=== PATIENT | male | born 1930 | race Caucasian/White ===

== ENCOUNTER 2019-06-25 19:08 | Emergency (ER) | payer BC, MEDICARE ==
--- NOTE | 2019-06-25 20:27 | EDM.PDOC ---
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 No neurological weakness. Pt was riding his truck all day long in order to cut grass. Pt is Ox3 has no pain, no numbness or any other acute neurological symptoms. He is otherwise in his usual state of health. Pt takes Plavix daily. No other acute med issues. BP 157/66 RR 18 Pulse ox 96% on RA Pulse 82 Temp 36.8 Onset Date: 06/25/19 Onset Time: 15:00 Duration: Hour(s): Location: Reports: Lower Extremity, Right (calg tingeling) Quality: Reports: Other (tingeling) Severity: Mild Improves with: Reports: None Worsens with: Reports: None Context: Reports: Other (was sitting on the tructor all day long) Associated Symptoms: Reports: No Other Symptoms Treatments [employer]: Reports: EKG - Related Data Allergies Allergy/AdvReac Type Severity Reaction Status Date / Time meperidine HCl [From Demerol] Allergy Other Verified 06/25/19 19:19 propoxyphene HCl Allergy Nausea Verified 06/25/19 19:19 [From Darvon] Home Meds: Home Meds Atenolol 25 mg PO BEDTIME 09/23/15 [History] Doxazosin Mesylate 4 mg PO BEDTIME 09/23/15 [History] Levothyroxine Sodium 150 mcg PO DAILY 09/23/15 [History] Multivitamin [Multivitamins] 1 tab PO BEDTIME 09/23/15 [History] Polyethylene Glycol 3350 [MiraLAX] 0.25 pack PO BEDTIME PRN 09/23/15 [History] Triamcinolone Acetonide [Triamcinolone Acetonide 0.1% Crm] 1 applic TOP TID PRN 09/23/15 [History] Clopidogrel Bisulfate [Clopidogrel] 75 mg BEDTIME 06/25/19 [History] Omeprazole 40 mg DAILY 06/25/19 [History] predniSONE [Prednisone] 5 mg BEDTIME 06/25/19 [History] Past Medical History HEENT History: Reports: Cataract Other HEENT History: wears glasses Cardiovascular History: Reports: Hypertension Other Cardiovascular History: CAROTID STENOSIS Respiratory History: Reports: Other (See Below) Other Respiratory History: CHRONIC COUGH Gastrointestinal History: Reports: Chronic Constipation, GERD Genitourinary History: Reports: Prostate Disorder, Retention, Urinary Other Genitourinary History: hydrocele, had a mccoy catheter placed in ED Musculoskeletal History: Reports: Fracture Other Musculoskeletal History: PMR Neurological History: Reports: CVA Other Neuro History: NEUROMUSCULAR DISORDER Endocrine/Metabolic History: Reports: Diabetes, Type II, Hypothyroidism Other Endocrine/Metabolic History: Borderline diabetic - Past Surgical History HEENT Surgical History: Reports: Cataract Surgery, Eye Surgery GI Surgical History: Reports: Colonoscopy, EGD, Hernia Repair/Other, Other (See Below) Neurological Surgical History: Reports: Other (See Below) Social & Family History - Family History Family Medical History: Noncontributory - Caffeine Use Caffeine Use: Reports: Coffee - Recreational Drug Use Recreational Drug Use: No ED ROS GENERAL - Review of Systems Review Of Systems: See Below Constitutional: Reports: No Symptoms HEENT: Reports: No Symptoms Respiratory: Reports: No Symptoms Cardiovascular: Reports: No Symptoms Endocrine: Reports: No Symptoms GI/Abdominal: Reports: No Symptoms : Reports: No Symptoms Musculoskeletal: Reports: No Symptoms Skin: Reports: Pruritis (right calf tingling) Neurological: Reports: Tingling (right calf for 2 hours) Psychiatric: Reports: No Symptoms Hematologic/Lymphatic: Reports: No Symptoms Immunologic: Reports: No Symptoms ED EXAM, NEURO - Physical Exam Exam: See Below Exam Limited By: No Limitations General Appearance: Alert, WD/WN, Mild Distress Eye Exam: Bilateral Eye: Normal Inspection Ears: Normal External Exam Nose: Normal Inspection Throat/Mouth: Normal Inspection, Normal Lips, Normal Voice, No Airway Compromise Head Exam: Atraumatic, Normocephalic Neck: Normal Inspection, Supple, Non-Tender, Full Range of Motion Respiratory/Chest: No Respiratory Distress, Lungs Clear, Normal Breath Sounds, Chest Non-Tender Cardiovascular: Normal Peripheral Pulses, Regular Rate, Rhythm, No Edema, No Gallop, No Rub GI/Abdominal: Normal Bowel Sounds, Soft, Non-Tender, No Organomegaly, No Mass, Pelvis Stable (Male) Exam: Deferred Rectal (Males) Exam: Deferred Neurological: Alert, Normal Mood/Affect, Normal Dorsiflexion, CN II-XII Intact, Normal Gait, Oriented x 3 Back Exam: Decreased Range of Motion (due to low back surgery) Extremities: Normal Inspection, Normal Range of Motion, Non-Tender, Normal Capillary Refill Psychiatric: Normal Affect, Normal Mood Skin Exam: Warm, Dry, Intact, Normal Color, No Rash EKG INTERPRETATION EKG Date: 06/25/19 Time: 19:25 Rhythm: NSR Rate (Beats/Min): 77 [place]: Normal P-Wave: Present QRS: Normal ST-T: Normal QT: Normal Comparison: NA - No Prior EKG Course - Vital Signs Text/Narrative:: 89 y.o.w.m with a H/O lacunar infarct in te distant past came to the ed with right posterior calf tingling of the past few hours. No neurological weakness. Pt was riding his truck all day long in order to cut grass. Pt is Ox3 has no pain, no numbness or any other acute neurological symptoms. He is otherwise in his usual state of health. Pt takes Plavix daily. No other acute med issues. BP 157/66 RR 18 Pulse ox 96% on RA Pulse 82 Temp 36.8 PE: WNWD W M with minimal right calf tingling. Labs: CBC and BMP were nl Imaging: Not indicated Impression: Minimal right calf tingling after riding tractor all day long Tx: none. Pt is on Plavix Reexam: Pt was doing fine, was in his usual state of health on D/C Plan: D/C with instructions Last Recorded V/S: Last Vital Signs Temp 36.5 C 06/25/19 19:10 Pulse 81 06/25/19 20:15 Resp 18 06/25/19 20:15 BP 145/76 H 06/25/19 20:15 Pulse Ox 98 06/25/19 20:15 - Orders/Labs/Meds Labs: Laboratory Tests 06/25/19 06/25/19 06/25/19 Range/Units 19:20 19:20 19:20 WBC 8.1 (4.5-12.0) X10-3/uL RBC 4.49 (4.30-5.75) x10(6)uL Hgb 14.4 (13.5-17.8) g/dL Hct 42.5 (30.0-51.3) % MCV 94.6 (80-96) fL MCH 32.0 (27.7-33.6) pg MCHC 33.8 (32.2-35.4) g/dL RDW 12.4 (11.5-15.5) % Plt Count 237 (125-369) X10(3)uL MPV 6.8 L (7.4-10.4) fL Neut % (Auto) 72.0 (46-82) % Lymph % (Auto) 17.7 (13-37) % [place] % (Auto) 7.9 (4-12) % Eos % (Auto) 2 (1.0-5.0) % Baso % (Auto) 1 (0-2) % Neut # (Auto) 5.9 (1.6-8.3) # Lymph # (Auto) 1.4 (0.6-5.0) # [place] # (Auto) 0.6 (0.0-1.3) # Eos # (Auto) 0.2 (0.0-0.8) # Baso # (Auto) 0.0 (0.0-0.2) # PT 10.6 (8.7-11.1) INR 1.09 (0.89-1.13) Sodium 139 (135-145) mmol/L Potassium 4.1 (3.5-5.3) mmol/L Chloride 101 (100-110) mmol/L Carbon Dioxide 28 (21-32) mmol/L BUN 20 H (7-18) mg/dL Creatinine 1.1 (0.70-1.30) mg/dL Est Cr Clr Drug Dosing 51.93 mL/min Estimated GFR (MDRD) > 60 (>60) BUN/Creatinine Ratio 18.2 (9-20) Glucose 106 (80-116) mg/dL Calcium 8.9 (8.6-10.2) mg/dL Creatine Kinase 52 L (60-160) IU/L Departure - Departure Time of Disposition: 20:25 Disposition: Home, Self-Care 01 Condition: Good Clinical Impression: Tingling of skin - Discharge Information Instructions: Paresthesia Referrals: PCP,None [Primary Care Provider] - Forms: ED Department Discharge Additional Instructions: Please cont your current medications, please follow up with your regular MD as needed, come back if your symptoms get worse acutely.
[2019-06-25 21:57] VITALS: BP 145/76; PULSE 81
== END 2019-06-25 20:35 | disposition home or self-care (01) ==
LOC: FB.ED 19:08
DX: R20.2 Paresthesia of skin (principal); I10 Essential (primary) hypertension; K21.9 Gastro-esophageal reflux disease without esophagitis; E11.9 Type 2 diabetes mellitus without complications; E03.9 Hypothyroidism, unspecified; Z79.02 Long term (current) use of antithrombotics/antiplatelets; Z88.5 Allergy status to narcotic agent; Z88.6 Allergy status to analgesic agent; Z79.899 Other long term (current) drug therapy; Z86.73 Personal history of transient ischemic attack (TIA), and cerebral infarction without residual deficits
CPT/HCPCS: 36415; 80048; 82550; 82962; 85025; 85610; 93010; 99282; 99284-25

== ENCOUNTER 2020-08-29 17:07 | Emergency (ER) | payer MEDICARE ==
[2020-08-29] MEDS ORDERED: Ondansetron 4 MG Tab.DIS PO ONE (17:08)
[2020-08-29] MEDS ORDERED: Lidocaine 2% with EPINEPHrine 1:100,000 20 ML MDV INFILT ONE (17:08)
[2020-08-29] MEDS ORDERED: Diphtheria,Pertussis(Acell),Tetanus Vaccine 0.5 ML SDV IM ONE (18:32)
--- NOTE | 2020-08-29 18:37 | EDM.PDOC ---
ED HPI GENERAL MEDICAL PROBLEM - General Chief Complaint: Head Injury Stated Complaint: LACERATION FACE Time Seen by Provider: 08/29/20 17:10 Source of Information: Reports: Patient History Limitations: Reports: No Limitations - History of Present Illness INITIAL COMMENTS - FREE TEXT/NARRATIVE: Patient presented to the ED because of head and facial injury. He tripped and fell and hit his face on a metal barrel. He sustained a nasal and facial laceration. there is no LOC after the fall. nose Pain Score (Numeric/FACES): 2 - Related Data Allergies Allergy/AdvReac Type Severity Reaction Status Date / Time meperidine HCl [From Demerol] Allergy Other Verified 06/25/19 19:19 propoxyphene HCl Allergy Nausea Verified 06/25/19 19:19 [From Darvon] Home Meds: Home Meds Doxazosin Mesylate 4 mg PO BEDTIME 09/23/15 [History] Levothyroxine Sodium 150 mcg PO DAILY 09/23/15 [History] Multivitamin [Multivitamins] 1 tab PO BEDTIME 09/23/15 [History] Polyethylene Glycol 3350 [MiraLAX] 0.25 pack PO BEDTIME PRN 09/23/15 [History] Triamcinolone Acetonide [Triamcinolone Acetonide 0.1% Crm] 1 applic TOP TID PRN 09/23/15 [History] atenoloL [Atenolol] 25 mg PO BEDTIME 09/23/15 [History] Clopidogrel Bisulfate [Clopidogrel] 75 mg BEDTIME 06/25/19 [History] Omeprazole 40 mg DAILY 06/25/19 [History] predniSONE [Prednisone] 5 mg BEDTIME 06/25/19 [History] Past Medical History HEENT History: Reports: Cataract Other HEENT History: wears glasses Cardiovascular History: Reports: Hypertension, Other (See Below) Other Cardiovascular History: CAROTID STENOSIS Respiratory History: Reports: Other (See Below) Other Respiratory History: CHRONIC COUGH Gastrointestinal History: Reports: Chronic Constipation, GERD Genitourinary History: Reports: Prostate Disorder, Retention, Urinary Other Genitourinary History: hydrocele, had a mccoy catheter placed in ED Musculoskeletal History: Reports: Fracture Other Musculoskeletal History: PMR Neurological History: Reports: CVA, TIA Other Neuro History: NEUROMUSCULAR DISORDER Endocrine/Metabolic History: Reports: Diabetes, Type II, Hypothyroidism Other Endocrine/Metabolic History: Borderline diabetic - Past Surgical History HEENT Surgical History: Reports: Cataract Surgery, Eye Surgery GI Surgical History: Reports: Colonoscopy, EGD, Hernia Repair/Other, Other (See Below) Social & Family History - Family History Family Medical History: Noncontributory - Tobacco Use Smoking Status *Q: Never Smoker - Caffeine Use Caffeine Use: Reports: Coffee ED ROS GENERAL - Review of Systems Review Of Systems: See Below Constitutional: Reports: No Symptoms HEENT: Reports: Nosebleed Respiratory: Reports: No Symptoms Cardiovascular: Reports: No Symptoms Endocrine: Reports: No Symptoms GI/Abdominal: Reports: No Symptoms : Reports: No Symptoms Musculoskeletal: Reports: No Symptoms Skin: Reports: Wound Neurological: Reports: No Symptoms Psychiatric: Reports: No Symptoms ED EXAM, HEAD INJURY - Physical Exam Exam: See Below Exam Limited By: No Limitations General Appearance: Alert, No Apparent Distress Head: Atraumatic Ears: Normal External Exam, Normal Canal, Hearing Grossly Normal Nose: Nasal Deformity, Nasal Swelling Throat/Mouth: Normal Inspection, Normal Lips, Normal Teeth Neck: Non-Tender, Full Range of Motion, Normal Alignment Respiratory: No Respiratory Distress, Lungs Clear, Normal Breath Sounds Cardiovascular: Normal Peripheral Pulses, Regular Rate, Rhythm, No Edema, No Gallop GI/Abdominal Exam: Normal Bowel Sounds, Soft, Non-Tender, No Organomegaly Back Exam: Normal Inspection, Full Range of Motion Extremities: Normal Inspection, Normal Range of Motion Neurologic: solutions executive security II-XII nml As Tested, No Motor/Sensory Deficits, Alert, Normal Mood/Affect, Oriented x 3 Skin: Normal Color ED LACERATION/WOUND & ARNAUD PROC - Laceration/Wound Repair Nose Lac/wound length in cm: 7 Appearance: Superficial Anesthetic Type: Local Local Anesthesia - Lidocaine (Xylocaine): 2% with EPI Local Anesthetic Volume: 2cc Skin Prep: Chlorhexidine (Hibiciens) Closed with: Sutures Suture Size: 3-0 # of Sutures: 7 Suture Type: Interrupted, Other (Chromic Gut) Course - Vital Signs Text/Narrative:: Tdap ENT consult with Dr Motley who recommended to follow up as needed. If patient is not bothered by his nasal deformity then he doesn't need to follow up. Patient said he doesn't care at all if his nose is deformed. Tranexamic Acid 1 gm IV x1 and topical Last Recorded V/S: Last Vital Signs Temp 36.6 C 08/29/20 19:00 Pulse 76 08/29/20 20:16 Resp 16 08/29/20 20:16 BP 169/81 H 08/29/20 20:16 Pulse Ox 98 08/29/20 20:16 - Orders/Labs/Meds Orders: Active Orders 24 hr Category Date Time Status Vaccines to be Administered [RC] PER UNIT ROUTINE Care 08/29/20 18:33 Active Head wo Cont [CT] Stat Exams 08/29/20 22:09 Taken Max Facial Sinus wo Cont [CT] Stat Exams 08/29/20 17:26 Taken Meds: Medications Discontinued Medications Generic Name Dose Route Start Last Admin Trade Name Freq PRN Reason Stop Dose Admin Diphtheria/Tetanus/Acell Pertussis 0.5 ml 08/29/20 18:32 08/29/20 18:53 Adacel IM 08/29/20 18:33 0.5 ml .ONCE ONE Administration Tranexamic Acid 1,000 mg/ 60 mls @ 200 mls/hr 08/29/20 19:16 Sodium Chloride IV 08/29/20 19:33 ONETIME ONE Tranexamic Acid 500 mg 08/29/20 19:17 Cyklokapron TOP 08/29/20 19:18 ONETIME ONE Departure - Departure Time of Disposition: 18:50 Disposition: Home, Self-Care 01 Condition: Good Clinical Impression: Nasal fracture, Facial injury - Discharge Information Instructions: Nasal Fracture, [id number], Sutures, Paul, or Adhesive Wound Closure, [id number], Facial Laceration, [id number] Referrals: Morales Moeller MD [Primary Care Provider] - Forms: ED Department Discharge Additional Instructions: Please read discharge instructions on facial injury and laceration No need to apply an antibiotic ointment The suture that was used will dissolve on it's own after 2-3 weeks Small amount of bleeding is ok, just put pressure for 15 minutes You can take tylenol 1000 mg every 8 hours as needed for pain Do not take your plavix for 3 days Follow up with ENT as needed Sepsis Event Note (ED) - Evaluation Sepsis Screening Result: No Definite Risk - Focused Exam Vital Signs: Vital Signs Temp Pulse Resp BP Pulse Ox 08/29/20 20:16 76 16 169/81 H 98 08/29/20 19:00 36.6 C 78 17 114/97 H 96 08/29/20 17:07 36.4 C 88 18 166/80 H 98 - My Orders Last 24 Hours: My Active Orders 08/29/20 17:26 Max Facial Sinus wo Cont [CT] Stat 08/29/20 18:33 Vaccines to be Administered [RC] PER UNIT ROUTINE 08/29/20 22:09 Head wo Cont [CT] Stat - Assessment/Plan Last 24 Hours: My Active Orders 08/29/20 17:26 Max Facial Sinus wo Cont [CT] Stat 08/29/20 18:33 Vaccines to be Administered [RC] PER UNIT ROUTINE 08/29/20 22:09 Head wo Cont [CT] Stat
[2020-08-29] MEDS ORDERED: Tranexamic Acid 1,000 MG in Sodium Chloride 0.9% 50 ML IV ONE (19:16)
[2020-08-29] MEDS ORDERED: Sodium Chloride 0.9% 250 ML IV SCH (19:30)
[2020-08-29 20:19] VITALS: BP 169/81; PULSE 76
== END 2020-08-29 20:45 | disposition home or self-care (01) ==
LOC: FB.ED 17:07
DX: S02.2XXA Fracture of nasal bones, initial encounter for closed fracture (principal); I10 Essential (primary) hypertension; E11.9 Type 2 diabetes mellitus without complications; E03.9 Hypothyroidism, unspecified; Z79.02 Long term (current) use of antithrombotics/antiplatelets; Z86.73 Personal history of transient ischemic attack (TIA), and cerebral infarction without residual deficits; Z88.5 Allergy status to narcotic agent; Z88.6 Allergy status to analgesic agent; Z79.899 Other long term (current) drug therapy; Z23 Encounter for immunization; W01.198A Fall on same level from slipping, tripping and stumbling with subsequent striking against other object, initial encounter
CPT/HCPCS: 12014; 70450; 70486; 90471; 90715; 96361; 96365; 99283; A9270; J7050

== ENCOUNTER 2021-06-04 09:01 | Observation (INO) | payer MEDICARE ==
--- NOTE | 2021-06-04 09:17 | EDM.PDOC ---
ED HPI GENERAL MEDICAL PROBLEM - General Stated Complaint: HEAD INJURY D/TFALL Time Seen by Provider: 06/04/21 09:12 Source of Information: Reports: Patient History Limitations: Reports: No Limitations - History of Present Illness INITIAL COMMENTS - FREE TEXT/NARRATIVE: 89-year-old male who according to the patient's has been feeling weak for the past and today he was walking from his bed to go to the bathroom and apparently tripped and she witnessed this and he fell and his left side striking his head against the wall. He denies any feelings of dizziness or near syncope prior to the fall but he does report that he has been feeling weak. He does not remember the events after tripping and doesn't really remember hitting the floor. He remembers awakening on the bed. The patient was helped up by other family members and apparently he seemed to garcia out again while he was sitting on the bed and ambulating back on the bed and he was not really completely verbally responsive for about a minute. Following this he was verbally responsive and seemed to be appropriate in his responses and there was no report of seizure activity. She presents to the emergency department via private vehicle with his family complaining of a mild stinging in his head that he would rated as a 4/10. This occurred at approximately 8 AM today. He is having no vision problems. There has been no nausea or vomiting. He does have a cut over his left occipital scalp. He complains of some mild pain in his left elbow. He has no neck pain. No chest pain. He does have a cough that he has had for several months and recently he has been having increasing shortness of breath. He has followed through the [facility] in [place] and was recently placed on prednisone for this. There have been no fevers or chills. He has been urinating normally. There has been no diarrhea. There are no other associated signs or symptoms. There are no other modifying factors. Onset: Today (Syncopal versus loss of consciousness after fall today. Weakness over the past few days that has been progressively worsening. Cough for the past 2 months.) Duration: Constant Location: Reports: Head, Upper Extremity, Left Quality: Reports: Other (Stinging) Severity: Mild (to moderate.) Improves with: Reports: Rest Worsens with: Reports: Other (Palpation), Movement Context: Reports: Trauma Associated Symptoms: Reports: No Other Symptoms (Except as above.) Treatments RUG SIZER: Reports: Other (see below) (Nothing.) - Related Data Allergies Allergy/AdvReac Type Severity Reaction Status Date / Time meperidine HCl [From Demerol] Allergy Other Verified 06/04/21 11:16 propoxyphene HCl Allergy Nausea Verified 06/04/21 11:16 [From Darvon] Home Meds: Home Meds Doxazosin Mesylate 4 mg PO BEDTIME 09/23/15 [History] atenoloL [Atenolol] 25 mg PO BEDTIME 09/23/15 [History] Clopidogrel Bisulfate [Clopidogrel] 75 mg BEDTIME 06/25/19 [History] Omeprazole 40 mg DAILY 06/25/19 [History] predniSONE [Prednisone] 5 mg BEDTIME 06/25/19 [History] Levothyroxine 175 mcg PO ACBREAKFAST 06/04/21 [History] Past Medical History HEENT History: Reports: Cataract Other HEENT History: wears glasses Cardiovascular History: Reports: Hypertension, Other (See Below) Other Cardiovascular History: CAROTID STENOSIS Gastrointestinal History: Reports: Chronic Constipation, GERD Genitourinary History: Reports: Prostate Disorder, Retention, Urinary Other Genitourinary History: hydrocele, had a mccoy catheter placed in ED Musculoskeletal History: Reports: Fracture Other Musculoskeletal History: PMR Neurological History: Reports: CVA, TIA Other Neuro History: NEUROMUSCULAR DISORDER Endocrine/Metabolic History: Reports: Diabetes, Type II, Hypothyroidism Other Endocrine/Metabolic History: Borderline diabetic - Past Surgical History HEENT Surgical History: Reports: Cataract Surgery, Eye Surgery GI Surgical History: Reports: Appendectomy, Colonoscopy, EGD, Hernia Repair/Other Musculoskeletal Surgical History: Reports: Knee Replacement (Bilateral total knee replacements) Social & Family History - Tobacco Use Tobacco Use Status *Q: Unknown Ever Used Tobacco (Nonsmoker.) - Caffeine Use Caffeine Use: Reports: Coffee - Alcohol Use Alcohol Use History: No - Living Situation & Occupation Living situation: Reports: Occupation: Retired (He is a retired ray.) ED ROS GENERAL - Review of Systems Review Of Systems: See Below Constitutional: Reports: Weakness. Denies: Fever, Chills HEENT: Denies: Sinus Problem, Throat Pain Respiratory: Reports: Shortness of Breath, Cough Cardiovascular: Reports: Dyspnea on Exertion. Denies: Chest Pain, Palpitations Endocrine: Reports: Fatigue. Denies: Polydypsia, Polyuria GI/Abdominal: Denies: Abdominal Pain, Nausea, Vomiting : Denies: Dysuria, Hematuria Musculoskeletal: Reports: Arm Pain. Denies: Neck Pain, Back Pain Skin: Reports: Wound (Laceration to left occipital scalp.). Denies: Diaphoresis Neurological: Reports: Headache, Other (Amnestic of the event). Denies: Confusion, Dizziness Psychiatric: Denies: Anxiety, Confusion Hematologic/Lymphatic: Reports: Easy Bleeding (Patient is on Plavix.) Immunologic: Reports: Other (Patient is up-to-date on his tetanus immunization with last tetanus immunization in 2019.) - Physical Exam Exam: See Below Exam Limited By: No Limitations General Appearance: Alert, WD/WN, Mild Distress, Other (Nontoxic-appearing. No respiratory distress.) Eye Exam: Bilateral Eye: EOMI, Normal Inspection (Sclera are anicteric.) Ears: Normal External Exam, Hearing Grossly Normal Nose: Normal Inspection, Normal Mucosa, No Blood Throat/Mouth: Normal Lips, Normal Oropharynx, Normal Voice, No Airway Compromise Head Exam: Normocephalic, Scalp Lacerations, Scalp Swelling, Scalp Ecchymosis, Scalp Tenderness, Other (All on left occipital scalp.) Neck: Normal Inspection, Supple, Non-Tender Respiratory/Chest: No Respiratory Distress, Lungs Clear, Normal Breath Sounds, No Accessory Muscle Use, Chest Non-Tender Cardiovascular: Normal Peripheral Pulses, Regular Rate, Rhythm, No Gallop GI/Abdominal: Normal Bowel Sounds, Soft, Non-Tender, No Mass Neuro Exam (Abbreviated): Alert, Oriented, CN II-XII Intact, Normal Cognition, No Motor/Sensory Deficits Back Exam: Normal Inspection. No: Paraspinal Tenderness, Vertebral Tenderness Extremities: Normal Range of Motion, No Pedal Edema, Normal Capillary Refill, Other (Tenderness over left elbow but full active range of motion and no crepitus or bony deformity noted.) Psychiatric: Normal Affect Skin Exam: Warm, Dry, Ecchymosis (Over left elbow area.), Wound/Incision (Laceration to the subcutaneous tissue 4 cm over the left occipital scalp.) ED PROCEDURES - Laceration/Wound Repair Left Occipital Head Lac/wound length in cm: 4 Appearance: Subcutaneous, Clean Distal NVT: Neuro & Vascular Intact Anesthetic Type: Local Local Anesthesia - Lidocaine (Xylocaine): 1% Plain Local Anesthetic Volume: 5cc (There was good anesthesia and no complications.) Skin Prep: Saline Saline irrigation (cc's): 250 Exploration/Debridement/Repair: Wound Explored, In a Bloodless Field, No Foreign Material Found, Other (No crepitus. No) Closed with: Nela # of Sutures: 6 Tetanus Status Addressed: Other (Patient was up-to-date on tetanus with last tetanus immunization in 2019.) Complications: No Progress/Comments: Patient tolerated the procedure well and there were no apparent complications. #1 Interpretation EKG Date: 06/04/21 Time: 09:06 Rhythm: NSR Rate (Beats/Min): 84 [place]: Normal P-Wave: Enlarged (Left atrial enlargement) ST-T: Other (Poor R-wave progression) QT: Normal IN/PQ Interval: Prolonged IN interval Comparison: No Change (No change from an EKG performed on 06/25/2019.) Course - Vital Signs Last Recorded V/S: Last Vital Signs Temp 36.6 C 06/04/21 09:25 Pulse 80 06/04/21 11:17 Resp 22 H 06/04/21 11:17 BP 112/59 L 06/04/21 11:17 Pulse Ox 94 L 06/04/21 11:17 - Orders/Labs/Meds Orders: Active Orders 24 hr Category Date Time Status EKG Documentation Completion [RC] ASDIRECTED Care 06/04/21 09:19 Active Vaccines to be Administered [RC] PER UNIT ROUTINE Care 06/04/21 09:22 Active Cervical Spine wo Cont [CT] Stat Exams 06/04/21 09:18 Taken Chest 1V Frontal [CR] Stat Exams 06/04/21 09:18 Taken Head wo Cont [CT] Stat Exams 06/04/21 09:18 Taken Sodium Chloride 0.9% [Saline Flush] Med 06/04/21 09:18 Active 10 ml FLUSH ASDIRECTED PRN Peripheral IV Insertion Adult [OM.PC] Routine Oth 06/04/21 09:18 Ordered EKG 12 Lead [EK] Routine Ther 06/04/21 09:18 Ordered Medication Orders Sodium Chloride (Sodium Chloride 0.9% 10 Ml Syringe) 10 ml FLUSH ASDIRECTED PRN PRN Reason: Keep Vein Open Labs: Laboratory Tests 06/04/21 06/04/21 06/04/21 Range/Units 09:28 09:28 09:28 WBC 18.8 H (3.2-10.1) x10-3/uL RBC 4.45 (3.90-5.90) x10(6)uL Hgb 14.3 (12.9-17.7) g/dL Hct 42.2 (38.3-50.1) % MCV 94.7 (80.8-98.7) fL MCH 32.1 (27.0-33.3) pg MCHC 34.0 (28.7-35.3) g/dL RDW 14.0 (12.4-15.0) % Plt Count 193 (117-477) x10(3)uL MPV 6.5 L (6.7-11.0) fL Add Manual Diff Yes Neutrophils % (Manual) 84 H (46-82) % Band Neutrophils % 2 (0-6) % Lymphocytes % (Manual) 10 L (13-37) % Monocytes % (Manual) 4 (4-12) % Sodium 137 (135-145) mmol/L Potassium 3.5 (3.5-5.3) mmol/L Chloride 98 L (100-110) mmol/L Carbon Dioxide 28 (21-32) mmol/L BUN 23 H (7-18) mg/dL Creatinine 1.1 (0.70-1.30) mg/dL Est Cr Clr Drug Dosing TNP Estimated GFR (MDRD) > 60 (>60) BUN/Creatinine Ratio 20.9 H (9-20) Glucose 109 (80-116) mg/dL Calcium 8.2 L (8.6-10.2) mg/dL Magnesium 1.8 (1.8-2.5) mg/dL Total Bilirubin 1.4 H (0.1-1.3) mg/dL AST 16 (5-25) IU/L ALT 25 (12-36) U/L Alkaline Phosphatase 55 L (56-112) IU/L Troponin I 8.2 (4.0-60.3) pg/mL C-Reactive Protein (0.5-0.9) mg/dL Total Protein 6.5 (6.0-8.0) g/dL Albumin 3.1 (2.9-4.5) g/dL Globulin 3.4 g/dL Albumin/Globulin Ratio 0.9 Urine Color (YELLOW) Urine Appearance (CLEAR) Urine pH (5.0-6.5) Ur Specific [place] (1.010-1.025) Urine Protein (NEGATIVE) mg/dL Urine Glucose (UA) (NORMAL) mg/dL Urine Ketones (NEGATIVE) mg/dL Urine Occult Blood (NEGATIVE) Urine Nitrite (NEGATIVE) Urine Bilirubin (NEGATIVE) Urine Urobilinogen (NEGATIVE) mg/dL Ur Leukocyte Esterase (NEGATIVE) U Hyaline Cast (Auto) (NS) Urine RBC (0-5) Urine WBC (0-5) Ur Squamous Epith Cells (NS,R,O) Urine Bacteria (NS) SARS-CoV-2 RNA (MADELEINE) (NEGATIVE) 06/04/21 06/04/21 06/04/21 Range/Units 09:28 10:16 11:00 WBC (3.2-10.1) x10-3/uL RBC (3.90-5.90) x10(6)uL Hgb (12.9-17.7) g/dL Hct (38.3-50.1) % MCV (80.8-98.7) fL MCH (27.0-33.3) pg MCHC (28.7-35.3) g/dL RDW (12.4-15.0) % Plt Count (117-477) x10(3)uL MPV (6.7-11.0) fL Add Manual Diff Neutrophils % (Manual) (46-82) % Band Neutrophils % (0-6) % Lymphocytes % (Manual) (13-37) % Monocytes % (Manual) (4-12) % Sodium (135-145) mmol/L Potassium (3.5-5.3) mmol/L Chloride (100-110) mmol/L Carbon Dioxide (21-32) mmol/L BUN (7-18) mg/dL Creatinine (0.70-1.30) mg/dL Est Cr Clr Drug Dosing Estimated GFR (MDRD) (>60) BUN/Creatinine Ratio (9-20) Glucose (80-116) mg/dL Calcium (8.6-10.2) mg/dL Magnesium (1.8-2.5) mg/dL Total Bilirubin (0.1-1.3) mg/dL AST (5-25) IU/L ALT (12-36) U/L Alkaline Phosphatase (56-112) IU/L Troponin I (4.0-60.3) pg/mL C-Reactive Protein 0.8 (0.5-0.9) mg/dL Total Protein (6.0-8.0) g/dL Albumin (2.9-4.5) g/dL Globulin g/dL Albumin/Globulin Ratio Urine Color Yellow (YELLOW) Urine Appearance Clear (CLEAR) Urine pH 7.0 H (5.0-6.5) Ur Specific [place] 1.015 (1.010-1.025) Urine Protein Negative (NEGATIVE) mg/dL Urine Glucose (UA) Normal (NORMAL) mg/dL Urine Ketones Negative (NEGATIVE) mg/dL Urine Occult Blood Negative (NEGATIVE) Urine Nitrite Negative (NEGATIVE) Urine Bilirubin Small H (NEGATIVE) Urine Urobilinogen Normal (NEGATIVE) mg/dL Ur Leukocyte Esterase Negative (NEGATIVE) U Hyaline Cast (Auto) Few H (NS) Urine RBC Not seen (0-5) Urine WBC 0-5 (0-5) Ur Squamous Epith Cells Few H (NS,R,O) Urine Bacteria Few H (NS) SARS-CoV-2 RNA (MADELEINE) Negative (NEGATIVE) Meds: Medications Generic Name Dose Route Start Last Admin Trade Name Freq PRN Reason Stop Dose Admin Sodium Chloride 10 ml 06/04/21 09:18 Sodium Chloride 0.9% 10 Ml Syringe FLUSH ASDIRECTED PRN Keep Vein Open Discontinued Medications Generic Name Dose Route Start Last Admin Trade Name Freq PRN Reason Stop Dose Admin Diphtheria/Tetanus/Acell Pertussis 0.5 ml 06/04/21 09:21 Diphtheria,Pertussis(Acell),Tetanus Vaccine 0.5 Ml Syringe IM 06/04/21 09:22 .ONCE ONE - Radiology Interpretation Free Text/Narrative:: Portable chest x-ray showed right lung infiltrate/consolidation in both the upper, middle and lower lobes laterally per my read. CT scan of the head showed no acute findings. There is nonspecific white matter disease that was felt to be chronic. This was per the [facility] radiologist. CT scan of the cervical spine showed no signs of acute injury but multilevel degenerative spondylosis. This was per the [facility] radiologist. - Re-Assessments/Exams Free Text/Narrative Re-Assessment/Exam: 06/04/21 10:40: Patient remains awake and alert. His O2 saturations are now 92- 93% room air at rest. He has remained neurologically stable. No further syncopal episodes. His white blood cell count was 18.8. His BUN was 23 is [place] was 1.1. His electrolytes were normal. His urinalysis was normal. Chest x-ray does show some right-sided consolidation of unclear etiology. CT scans of his head and neck were negative per my read. At this point, with the patient having the syncopal episode and the right-sided lung consolidation, I feel that he will need admission IV fluids and close monitoring. I discussed all this with the patient and with his and they would be in agreement to admission at our facility. I discussed the patient's case with Dr. Smith, hospitalist, and he will admit the patient. The left occipital scalp laceration was closed using skin nela and the patient tolerated this well. Departure - Departure Time of Disposition: 10:45 Disposition: Refer to Observation Condition: Fair Clinical Impression: Consolidation of right lower lobe of lung, Generalized weakness, Fall on same level from tripping Syncope Qualifiers: Syncope type: unspecified Qualified Code(s): R55 - Syncope and collapse Head contusion Qualifiers: Encounter type: initial encounter Contusion of head detail: scalp Qualified Code(s): S00.03XA - Contusion of scalp, initial encounter Left elbow contusion Qualifiers: Encounter type: initial encounter Qualified Code(s): S50.02XA - Contusion of left elbow, initial encounter - Discharge Information Sepsis Event Note (ED) - Focused Exam Vital Signs: Vital Signs Temp Pulse Resp BP Pulse Ox 06/04/21 11:17 80 22 H 112/59 L 94 L 06/04/21 09:25 36.6 C 86 17 122/61 91 L - My Orders Last 24 Hours: My Active Orders 06/04/21 09:18 Cervical Spine wo Cont [CT] Stat Chest 1V Frontal [CR] Stat Head wo Cont [CT] Stat Sodium Chloride 0.9% [Saline Flush] 10 ml FLUSH ASDIRECTED PRN Peripheral IV Insertion Adult [OM.PC] Routine EKG 12 Lead [EK] Routine 06/04/21 09:19 EKG Documentation Completion [RC] ASDIRECTED 06/04/21 09:22 Vaccines to be Administered [RC] PER UNIT ROUTINE - Assessment/Plan Last 24 Hours: My Active Orders 06/04/21 09:18 Cervical Spine wo Cont [CT] Stat Chest 1V Frontal [CR] Stat Head wo Cont [CT] Stat Sodium Chloride 0.9% [Saline Flush] 10 ml FLUSH ASDIRECTED PRN Peripheral IV Insertion Adult [OM.PC] Routine EKG 12 Lead [EK] Routine 06/04/21 09:19 EKG Documentation Completion [RC] ASDIRECTED 06/04/21 09:22 Vaccines to be Administered [RC] PER UNIT ROUTINE
[2021-06-04] MEDS ORDERED: Sodium Chloride 0.9% 10 ML Syringe FLUSH PRN (09:18)
[2021-06-04] MEDS ORDERED: Diphtheria,Pertussis(Acell),Tetanus Vaccine 0.5 ML Syringe IM ONE (09:21)
--- NOTE | 2021-06-04 13:22 | PCM.HP.2 ---
H&P History of Present Illness - General Date of Service: 06/04/21 Admit Problem/Dx: Admission Diagnosis/Problem Admission Diagnosis/Problem Fall at home History Limitations: Reports: No Limitations - History of Present Illness Initial Comments - Free Text/Narative: 89-year-old gentleman came to the emergency department after suffering a mechanical fall at home. He states that he did not feel dizzy, he did not have syncope, he did not lose his balance, he thinks he may have tripped over something on the floor or loose rug. He is on Plavix for stroke prevention and history of stroke. He suffered an injury to his head and received nela to close the head injury and bruising to his left elbow and left knee. He otherwise feels well. Neurological exam at the bedside was within normal limit s. Patient will be admitted to observation overnight with neurological checks. We will hold Plavix tonight. - Related Data Allergies/Adverse Reactions: Allergies Allergy/AdvReac Type Severity Reaction Status Date / Time meperidine HCl [From Demerol] Allergy Other Verified 06/04/21 11:16 propoxyphene HCl Allergy Nausea Verified 06/04/21 11:16 [From Darvon] Home Medications: Home Meds Doxazosin Mesylate 4 mg PO BEDTIME 09/23/15 [History] atenoloL [Atenolol] 25 mg PO BEDTIME 09/23/15 [History] Clopidogrel Bisulfate [Clopidogrel] 75 mg BEDTIME 06/25/19 [History] Omeprazole 40 mg DAILY 06/25/19 [History] predniSONE [Prednisone] 5 mg BEDTIME 06/25/19 [History] Levothyroxine 175 mcg PO ACBREAKFAST 06/04/21 [History] Past Medical History HEENT History: Reports: Cataract, Hard of Hearing Other HEENT History: wears glasses Cardiovascular History: Reports: Hypertension, Other (See Below) Other Cardiovascular History: CAROTID STENOSIS Respiratory History: Reports: Other (See Below) Other Respiratory History: CHRONIC COUGH Gastrointestinal History: Reports: Chronic Constipation, GERD Genitourinary History: Reports: Prostate Disorder Other Genitourinary History: hydrocele, had a mccoy catheter placed in ED Musculoskeletal History: Reports: Fracture Other Musculoskeletal History: PMR Neurological History: Reports: CVA, TIA Other Neuro History: NEUROMUSCULAR DISORDER Endocrine/Metabolic History: Reports: Diabetes, Type II, Hypothyroidism Other Endocrine/Metabolic History: Borderline diabetic - Past Surgical History GI Surgical History: Reports: Appendectomy, Colonoscopy, EGD, Hernia Repair/Other Musculoskeletal Surgical History: Reports: Knee Replacement (Bilateral total knee replacements) Social & Family History - Family History Family Medical History: No Pertinent Family History - Tobacco Use Tobacco Use Status *Q: Unknown Ever Used Tobacco (Nonsmoker.) Second Hand Smoke Exposure: No - Caffeine Use Caffeine Use: Reports: Coffee - Recreational Drug Use Recreational Drug Use: No - Living Situation & Occupation Living situation: Reports: Occupation: Retired (He is a retired ray.) H&P Review of Systems - Review of Systems: Review Of Systems: See Below General: Reports: No Symptoms HEENT: Reports: No Symptoms Pulmonary: Reports: No Symptoms Cardiovascular: Reports: No Symptoms Gastrointestinal: Reports: No Symptoms Genitourinary: Reports: No Symptoms Musculoskeletal: Reports: No Symptoms Skin: Reports: No Symptoms Psychiatric: Reports: No Symptoms Neurological: Reports: No Symptoms Hematologic/Lymphatic: Reports: No Symptoms Immunologic: Reports: No Symptoms Exam - Exam Exam: See Below - Vital Signs Vital Signs: Last Vital Signs Temp 36.6 C 06/04/21 09:25 Pulse 80 06/04/21 11:17 Resp 22 H 06/04/21 11:17 BP 112/59 L 06/04/21 11:17 Pulse Ox 94 L 06/04/21 11:17 Weight: 84.958 kg - Exam Quality Assessment: DVT Prophylaxis General: Alert, Oriented, Cooperative HEENT: EOMI Lungs: Clear to Auscultation, Normal Respiratory Effort Cardiovascular: Regular Rate, Regular Rhythm GI/Abdominal Exam: Normal Bowel Sounds, Non-Tender Back Exam: Normal Inspection Extremities: Normal Inspection Peripheral Pulses: 2+: Radial (L), Radial (R), Dorsalis Pedis (L), Dorsalis Pedis (R) Skin: Ecchymosis, Wound Neurological: Cranial Nerves Intact, Strength Equal Bilateral, Normal Speech, Normal Tone, Sensation Intact Neuro Extensive - Mental Status: Alert, Oriented x3, Normal Mood/Affect, Normal Cognition Neuro Extensive - Motor, Sensory, Reflexes: CN II-XII Intact. No: Pronator Drift (R), Pronator Drift (L), Abnormal Finger to Nose, Abnormal Heel to Boyer, Abnormal Sensation, Abnormal Light Touch Psychiatric: Alert, Normal Affect, Normal Mood - Patient Data Lab Results Last 24 hrs: Laboratory Results - last 24 hr 06/04/21 06/04/21 06/04/21 Range/Units 09:28 09:28 09:28 WBC 18.8 H (3.2-10.1) x10-3/uL RBC 4.45 (3.90-5.90) x10(6)uL Hgb 14.3 (12.9-17.7) g/dL Hct 42.2 (38.3-50.1) % MCV 94.7 (80.8-98.7) fL MCH 32.1 (27.0-33.3) pg MCHC 34.0 (28.7-35.3) g/dL RDW 14.0 (12.4-15.0) % Plt Count 193 (117-477) x10(3)uL MPV 6.5 L (6.7-11.0) fL Add Manual Diff Yes Neutrophils % (Manual) 84 H (46-82) % Band Neutrophils % 2 (0-6) % Lymphocytes % (Manual) 10 L (13-37) % Monocytes % (Manual) 4 (4-12) % Sodium 137 (135-145) mmol/L Potassium 3.5 (3.5-5.3) mmol/L Chloride 98 L (100-110) mmol/L Carbon Dioxide 28 (21-32) mmol/L BUN 23 H (7-18) mg/dL Creatinine 1.1 (0.70-1.30) mg/dL Est Cr Clr Drug Dosing TNP Estimated GFR (MDRD) > 60 (>60) BUN/Creatinine Ratio 20.9 H (9-20) Glucose 109 (80-116) mg/dL Calcium 8.2 L (8.6-10.2) mg/dL Magnesium 1.8 (1.8-2.5) mg/dL Total Bilirubin 1.4 H (0.1-1.3) mg/dL AST 16 (5-25) IU/L ALT 25 (12-36) U/L Alkaline Phosphatase 55 L (56-112) IU/L Troponin I 8.2 (4.0-60.3) pg/mL C-Reactive Protein (0.5-0.9) mg/dL Total Protein 6.5 (6.0-8.0) g/dL Albumin 3.1 (2.9-4.5) g/dL Globulin 3.4 g/dL Albumin/Globulin Ratio 0.9 Urine Color (YELLOW) Urine Appearance (CLEAR) Urine pH (5.0-6.5) Ur Specific [place] (1.010-1.025) Urine Protein (NEGATIVE) mg/dL Urine Glucose (UA) (NORMAL) mg/dL Urine Ketones (NEGATIVE) mg/dL Urine Occult Blood (NEGATIVE) Urine Nitrite (NEGATIVE) Urine Bilirubin (NEGATIVE) Urine Urobilinogen (NEGATIVE) mg/dL Ur Leukocyte Esterase (NEGATIVE) U Hyaline Cast (Auto) (NS) Urine RBC (0-5) Urine WBC (0-5) Ur Squamous Epith Cells (NS,R,O) Urine Bacteria (NS) SARS-CoV-2 RNA (MADELEINE) (NEGATIVE) 06/04/21 06/04/21 06/04/21 Range/Units 09:28 10:16 11:00 WBC (3.2-10.1) x10-3/uL RBC (3.90-5.90) x10(6)uL Hgb (12.9-17.7) g/dL Hct (38.3-50.1) % MCV (80.8-98.7) fL MCH (27.0-33.3) pg MCHC (28.7-35.3) g/dL RDW (12.4-15.0) % Plt Count (117-477) x10(3)uL MPV (6.7-11.0) fL Add Manual Diff Neutrophils % (Manual) (46-82) % Band Neutrophils % (0-6) % Lymphocytes % (Manual) (13-37) % Monocytes % (Manual) (4-12) % Sodium (135-145) mmol/L Potassium (3.5-5.3) mmol/L Chloride (100-110) mmol/L Carbon Dioxide (21-32) mmol/L BUN (7-18) mg/dL Creatinine (0.70-1.30) mg/dL Est Cr Clr Drug Dosing Estimated GFR (MDRD) (>60) BUN/Creatinine Ratio (9-20) Glucose (80-116) mg/dL Calcium (8.6-10.2) mg/dL Magnesium (1.8-2.5) mg/dL Total Bilirubin (0.1-1.3) mg/dL AST (5-25) IU/L ALT (12-36) U/L Alkaline Phosphatase (56-112) IU/L Troponin I (4.0-60.3) pg/mL C-Reactive Protein 0.8 (0.5-0.9) mg/dL Total Protein (6.0-8.0) g/dL Albumin (2.9-4.5) g/dL Globulin g/dL Albumin/Globulin Ratio Urine Color Yellow (YELLOW) Urine Appearance Clear (CLEAR) Urine pH 7.0 H (5.0-6.5) Ur Specific [place] 1.015 (1.010-1.025) Urine Protein Negative (NEGATIVE) mg/dL Urine Glucose (UA) Normal (NORMAL) mg/dL Urine Ketones Negative (NEGATIVE) mg/dL Urine Occult Blood Negative (NEGATIVE) Urine Nitrite Negative (NEGATIVE) Urine Bilirubin Small H (NEGATIVE) Urine Urobilinogen Normal (NEGATIVE) mg/dL Ur Leukocyte Esterase Negative (NEGATIVE) U Hyaline Cast (Auto) Few H (NS) Urine RBC Not seen (0-5) Urine WBC 0-5 (0-5) Ur Squamous Epith Cells Few H (NS,R,O) Urine Bacteria Few H (NS) SARS-CoV-2 RNA (MADELEINE) Negative (NEGATIVE) Result Diagrams: 06/04/21 09:28 06/04/21 09:28 Sepsis Event Note - Evaluation Sepsis Screening Result: No Definite Risk - Focused Exam Vital Signs: Vital Signs Temp Pulse Resp BP Pulse Ox 06/04/21 11:17 80 22 H 112/59 L 94 L 06/04/21 09:25 36.6 C 86 17 122/61 91 L - Problem List (1) Hypothyroidism SNOMED Code(s): 68004281 ICD Code: E03.9 - HYPOTHYROIDISM, UNSPECIFIED Status: Chronic Current Visit: Yes (2) Diabetes mellitus type 2 in nonobese SNOMED Code(s): 390631217 ICD Code: E11.9 - TYPE 2 DIABETES MELLITUS WITHOUT COMPLICATIONS Status: Chronic Current Visit: Yes (3) GERD (gastroesophageal reflux disease) SNOMED Code(s): 235447304 ICD Code: K21.9 - GASTRO-ESOPHAGEAL REFLUX DISEASE WITHOUT ESOPHAGITIS Status: Chronic Current Visit: Yes (4) Hiatal hernia SNOMED Code(s): 15275731 ICD Code: K44.9 - DIAPHRAGMATIC HERNIA WITHOUT OBSTRUCTION OR GANGRENE Status: Chronic Current Visit: Yes (5) Polymyalgia rheumatica SNOMED Code(s): 86359645 ICD Code: M35.3 - POLYMYALGIA RHEUMATICA Status: Acute Current Visit: Yes (6) BPH (benign prostatic hyperplasia) SNOMED Code(s): 180592934 ICD Code: N40.0 - BENIGN PROSTATIC HYPERPLASIA WITHOUT LOWER URINRY TRACT SYMP Status: Chronic Current Visit: Yes (7) Peripheral vascular disease SNOMED Code(s): 167736085 ICD Code: I73.9 - PERIPHERAL VASCULAR DISEASE, UNSPECIFIED Status: Chronic Current Visit: Yes (8) Cerebrovascular disease SNOMED Code(s): 81338770 ICD Code: I67.9 - CEREBROVASCULAR DISEASE, UNSPECIFIED Status: Chronic Current Visit: Yes (9) History of stroke SNOMED Code(s): 933234137 ICD Code: Z86.73 - PRSNL HX OF TIA (TIA), AND CEREB INFRC W/O RESID DEFICITS Status: Chronic Current Visit: Yes (10) Palliative care encounter SNOMED Code(s): 232909318, 029802243 ICD Code: Z51.5 - ENCOUNTER FOR PALLIATIVE CARE Status: Acute Current Visit: Yes (11) Fall on same level from tripping SNOMED Code(s): 174457923 ICD Code: W01.0XXA - FALL SAME LEV FROM SLIP/TRIP W/O STRIKE AGAINST OBJECT, INIT Status: Acute Current Visit: Yes (12) Head contusion SNOMED Code(s): 689569468 ICD Code: S00.93XA - CONTUSION OF UNSPECIFIED PART OF HEAD, INITIAL ENCOUNTER Status: Acute Current Visit: Yes Qualifiers: Encounter type: initial encounter Contusion of head detail: scalp Qualified Code(s): S00.03XA - Contusion of scalp, initial encounter (13) Left elbow contusion SNOMED Code(s): 11612661 ICD Code: S50.02XA - CONTUSION OF LEFT ELBOW, INITIAL ENCOUNTER Status: Acute Current Visit: Yes Qualifiers: Encounter type: initial encounter Qualified Code(s): S50.02XA - Contusion of left elbow, initial encounter (14) Contusion of left knee SNOMED Code(s): 54251923 ICD Code: S80.02XA - CONTUSION OF LEFT KNEE, INITIAL ENCOUNTER Status: Acute Current Visit: Yes Problem List Initiated/Reviewed/Updated: Yes Orders Last 24hrs: Active Orders 24 hr Category Date Time Status Patient Status [ADT] Routine ADT 06/04/21 13:03 Ordered Antiembolic Devices [RC] .Routine Care 06/04/21 13:05 Ordered Assess Neurological Status [RC] ASDIRECTED Care 06/04/21 13:08 Ordered Cardiac Monitoring [RC] .As Directed Care 06/04/21 13:09 Ordered EKG Documentation Completion [RC] ASDIRECTED Care 06/04/21 09:19 Active Pulse Oximetry [RC] PRN Care 06/04/21 13:03 Ordered VTE/DVT Education [RC] Click to Edit Care 06/04/21 13:05 Ordered Vaccines to be Administered [RC] PER UNIT ROUTINE Care 06/04/21 09:22 Active Vital Signs [RC] Q4H Care 06/04/21 13:03 Ordered Heart Healthy Diet [DIET] Diet 06/04/21 Dinner Ordered Cervical Spine wo Cont [CT] Stat Exams 06/04/21 09:18 Taken Chest 1V Frontal [CR] Stat Exams 06/04/21 09:18 Taken Head wo Cont [CT] Stat Exams 06/04/21 09:18 Taken Doxazosin [Cardura] Med 06/04/21 21:00 Ordered 4 mg PO BEDTIME Levothyroxine Med 06/05/21 07:30 Ordered 175 mcg PO ACBREAKFAST Omeprazole [Omeprazole] Med 06/05/21 09:00 Ordered 40 mg PO DAILY Sodium Chloride 0.9% [Saline Flush] Med 06/04/21 09:18 Active 10 ml FLUSH ASDIRECTED PRN atenoloL [Tenormin] Med 06/04/21 21:00 Ordered 25 mg PO BEDTIME predniSONE Med 06/04/21 21:00 Ordered 5 mg PO BEDTIME DVT/VTE Prophylaxis Reflex [OM.PC] Per Unit Routine Oth 06/04/21 13:03 Ordered Peripheral IV Insertion Adult [OM.PC] Routine Oth 06/04/21 09:18 Ordered Resuscitation Status Routine Resus Stat 06/04/21 13:03 Ordered EKG 12 Lead [EK] Routine Ther 06/04/21 09:18 Ordered Medication Orders Atenolol (Atenolol 50 Mg Tab) 25 mg PO BEDTIME KORI Doxazosin Mesylate (Doxazosin 4 Mg Tab) 4 mg PO BEDTIME KORI Levothyroxine Sodium (Levothyroxine 175 Mcg Tab) 175 mcg PO ACBREAKFAST KORI Non-Formulary Medication (Omeprazole [Omeprazole]) 40 mg PO DAILY KORI Prednisone (Prednisone 5 Mg Tab) 5 mg PO BEDTIME KORI Sodium Chloride (Sodium Chloride 0.9% 10 Ml Syringe) 10 ml FLUSH ASDIRECTED PRN PRN Reason: Keep Vein Open Assessment/Plan Comment:: 1. Patient admitted to observation. Neurological checks every 4 hours 2. Restart home medications for chronic conditions. Hold Plavix tonight due to recent head trauma 3. DVT prophylaxis: SCDs, frequent ambulation 4. GI prophylaxis: Regular diet, continue home PPI 5. Disposition: Patient CT showed no acute process and neurological exam was within normal limits. Patient will be monitored overnight and likely discharge tomorrow if there is no change in status
[2021-06-04] MEDS: cefTRIAXone 2 GM Vial IVPUSH SCH (14:40)
[2021-06-04] MEDS ORDERED: Acetaminophen 325 MG Tab PO PRN (14:42)
[2021-06-04] MEDS ORDERED: Azithromycin 500 MG in Sodium Chloride 0.9% 250 ML IV SCH (15:00)
[2021-06-04] MEDS: OMEPRAZOLE 40 MG PO SCH (15:14)
[2021-06-04] MEDS: PREDNISONE 20 MG PO SCH (15:14)
[2021-06-04] MEDS ORDERED: Doxazosin 4 MG Tab**OWN MED PO SCH (21:00)
[2021-06-04] MEDS ORDERED: CALCIUM PO SCH (21:00)
[2021-06-04] MEDS ORDERED: FOLIC ACID PO SCH (21:00)
[2021-06-04] MEDS ORDERED: ATENOLOL 25 MG PO SCH (21:00)
[2021-06-04] MEDS ORDERED: MULTIVITAMINS WITH IRON PO SCH (21:00)
[2021-06-04] MEDS ORDERED: MINERALS PO SCH (21:00)
[2021-06-04] MEDS ORDERED: predniSONE 5 MG Tab PO SCH (21:00)
[2021-06-05] MEDS ORDERED: LEVOTHYROXINE 175 MCG PO SCH ×2 (04:00→07:30)
[2021-06-05] MEDS ORDERED: OMEPRAZOLE 40 MG PO SCH (07:30)
--- NOTE | 2021-06-05 08:31 | PCM.PN ---
- General Info Date of Service: 06/05/21 Admission Dx/Problem (Free Text): Admission Diagnosis/Problem Admission Diagnosis/Problem Fall at home Subjective Update: Patient states that he is feeling well and having no difficulty with chest pain, shortness of breath, ambulation. He has no new concerns or complaints at this time. Functional Status: Reports: Pain Controlled, Tolerating Diet, Ambulating, Urinating - Review of Systems General: Reports: No Symptoms HEENT: Reports: No Symptoms Pulmonary: Reports: No Symptoms Cardiovascular: Reports: No Symptoms Gastrointestinal: Reports: No Symptoms Genitourinary: Reports: No Symptoms Musculoskeletal: Reports: No Symptoms Skin: Reports: No Symptoms Neurological: Reports: No Symptoms Psychiatric: Reports: No Symptoms - Patient Data Vitals - Most Recent: Last Vital Signs Temp 37.0 C 06/05/21 04:00 Pulse 77 06/05/21 04:00 Resp 18 06/05/21 04:00 BP 121/67 06/05/21 04:00 Pulse Ox 90 L 06/05/21 04:00 Weight - Most Recent: 84.958 kg I&O - Last 24 Hours: Intake & Output 06/04/21 06/05/21 06/05/21 22:59 06:59 14:59 Intake Total 360 Balance 360 Lab Results Last 24 Hours: Laboratory Results - last 24 hr 06/04/21 06/04/21 06/04/21 Range/Units 09:28 09:28 09:28 WBC 18.8 H (3.2-10.1) x10-3/uL RBC 4.45 (3.90-5.90) x10(6)uL Hgb 14.3 (12.9-17.7) g/dL Hct 42.2 (38.3-50.1) % MCV 94.7 (80.8-98.7) fL MCH 32.1 (27.0-33.3) pg MCHC 34.0 (28.7-35.3) g/dL RDW 14.0 (12.4-15.0) % Plt Count 193 (117-477) x10(3)uL MPV 6.5 L (6.7-11.0) fL Add Manual Diff Yes Neutrophils % (Manual) 84 H (46-82) % Band Neutrophils % 2 (0-6) % Lymphocytes % (Manual) 10 L (13-37) % Monocytes % (Manual) 4 (4-12) % Sodium 137 (135-145) mmol/L Potassium 3.5 (3.5-5.3) mmol/L Chloride 98 L (100-110) mmol/L Carbon Dioxide 28 (21-32) mmol/L BUN 23 H (7-18) mg/dL Creatinine 1.1 (0.70-1.30) mg/dL Est Cr Clr Drug Dosing TNP Estimated GFR (MDRD) > 60 (>60) BUN/Creatinine Ratio 20.9 H (9-20) Glucose 109 (80-116) mg/dL Calcium 8.2 L (8.6-10.2) mg/dL Magnesium 1.8 (1.8-2.5) mg/dL Total Bilirubin 1.4 H (0.1-1.3) mg/dL AST 16 (5-25) IU/L ALT 25 (12-36) U/L Alkaline Phosphatase 55 L (56-112) IU/L Troponin I 8.2 (4.0-60.3) pg/mL C-Reactive Protein (0.5-0.9) mg/dL Total Protein 6.5 (6.0-8.0) g/dL Albumin 3.1 (2.9-4.5) g/dL Globulin 3.4 g/dL Albumin/Globulin Ratio 0.9 Urine Color (YELLOW) Urine Appearance (CLEAR) Urine pH (5.0-6.5) Ur Specific [place] (1.010-1.025) Urine Protein (NEGATIVE) mg/dL Urine Glucose (UA) (NORMAL) mg/dL Urine Ketones (NEGATIVE) mg/dL Urine Occult Blood (NEGATIVE) Urine Nitrite (NEGATIVE) Urine Bilirubin (NEGATIVE) Urine Urobilinogen (NEGATIVE) mg/dL Ur Leukocyte Esterase (NEGATIVE) U Hyaline Cast (Auto) (NS) Urine RBC (0-5) Urine WBC (0-5) Ur Squamous Epith Cells (NS,R,O) Urine Bacteria (NS) SARS-CoV-2 RNA (MADELEINE) (NEGATIVE) 06/04/21 06/04/21 06/04/21 Range/Units 09:28 10:16 11:00 WBC (3.2-10.1) x10-3/uL RBC (3.90-5.90) x10(6)uL Hgb (12.9-17.7) g/dL Hct (38.3-50.1) % MCV (80.8-98.7) fL MCH (27.0-33.3) pg MCHC (28.7-35.3) g/dL RDW (12.4-15.0) % Plt Count (117-477) x10(3)uL MPV (6.7-11.0) fL Add Manual Diff Neutrophils % (Manual) (46-82) % Band Neutrophils % (0-6) % Lymphocytes % (Manual) (13-37) % Monocytes % (Manual) (4-12) % Sodium (135-145) mmol/L Potassium (3.5-5.3) mmol/L Chloride (100-110) mmol/L Carbon Dioxide (21-32) mmol/L BUN (7-18) mg/dL Creatinine (0.70-1.30) mg/dL Est Cr Clr Drug Dosing Estimated GFR (MDRD) (>60) BUN/Creatinine Ratio (9-20) Glucose (80-116) mg/dL Calcium (8.6-10.2) mg/dL Magnesium (1.8-2.5) mg/dL Total Bilirubin (0.1-1.3) mg/dL AST (5-25) IU/L ALT (12-36) U/L Alkaline Phosphatase (56-112) IU/L Troponin I (4.0-60.3) pg/mL C-Reactive Protein 0.8 (0.5-0.9) mg/dL Total Protein (6.0-8.0) g/dL Albumin (2.9-4.5) g/dL Globulin g/dL Albumin/Globulin Ratio Urine Color Yellow (YELLOW) Urine Appearance Clear (CLEAR) Urine pH 7.0 H (5.0-6.5) Ur Specific [place] 1.015 (1.010-1.025) Urine Protein Negative (NEGATIVE) mg/dL Urine Glucose (UA) Normal (NORMAL) mg/dL Urine Ketones Negative (NEGATIVE) mg/dL Urine Occult Blood Negative (NEGATIVE) Urine Nitrite Negative (NEGATIVE) Urine Bilirubin Small H (NEGATIVE) Urine Urobilinogen Normal (NEGATIVE) mg/dL Ur Leukocyte Esterase Negative (NEGATIVE) U Hyaline Cast (Auto) Few H (NS) Urine RBC Not seen (0-5) Urine WBC 0-5 (0-5) Ur Squamous Epith Cells Few H (NS,R,O) Urine Bacteria Few H (NS) SARS-CoV-2 RNA (MADELEINE) Negative (NEGATIVE) Med Orders - Current: Current Medications Acetaminophen (Acetaminophen 325 Mg Tab) 650 mg PO Q4H PRN PRN Reason: Pain Last Admin: 06/04/21 14:50 Dose: 650 mg Documented by: Atenolol (Atenolol 25 Mg TabOwn Med) 25 mg PO BEDTIME [facility] Last Admin: 06/04/21 20:11 Dose: 25 mg Documented by: Ceftriaxone Sodium (Ceftriaxone 2 Gm Vial) 2 gm IVPUSH Q24H [facility] Last Admin: 06/04/21 14:40 Dose: 2 gm Documented by: Doxazosin Mesylate (Doxazosin 4 Mg TabOwn Med) 4 mg PO BEDTIME [facility] Last Admin: 06/04/21 20:10 Dose: 4 mg Documented by: Azithromycin 500 mg/ Sodium (Chloride) 250 mls @ 250 mls/hr IV Q24H [facility] Levothyroxine Sodium (Levothyroxine 175 Mcg TabOwn Med) 175 mcg PO DAILY@ 0400 [facility] Last Admin: 06/05/21 04:13 Dose: 175 mcg Documented by: Multivitamins/Minerals (Multivitamins With Iron/Calcium/Folic Acid/Minerals TabOwn Med) 1 tab PO BEDTIME [facility] Last Admin: 06/04/21 20:11 Dose: 1 tab Documented by: Omeprazole [ Omeprazole] 40 Mg Own Med 40 mg PO DAILY@1200 [facility] Last Admin: 06/04/21 15:14 Dose: 40 mg Documented by: Prednisone (Prednisone 20 Mg TabOwn Med) 20 mg PO DAILY@1200 [facility] Last Admin: 06/04/21 15:14 Dose: 20 mg Documented by: Sodium Chloride (Sodium Chloride 0.9% 10 Ml Syringe) 10 ml FLUSH ASDIRECTED PRN PRN Reason: Keep Vein Open Discontinued Medications Diphtheria/Tetanus/Acell Pertussis (Diphtheria,Pertussis(Acell),Tetanus Vaccine 0.5 Ml Syringe) 0.5 ml IM .ONCE ONE Stop: 06/04/21 09:22 Last Admin: 06/04/21 15:29 Dose: Not Given Documented by: Azithromycin 500 mg/ Sodium (Chloride) 250 mls @ 250 mls/hr IV Q24H [facility] Last Admin: 06/04/21 14:41 Dose: 250 mls/hr Documented by: Levothyroxine Sodium (Levothyroxine 175 Mcg TabOwn Med) 175 mcg PO ACBREAKFAST [facility] Omeprazole [ Omeprazole] 40 Mg Cap.CrOwn Med 40 mg PO ACBREAKFAST [facility] Prednisone (Prednisone 5 Mg Tab) 5 mg PO BEDTIME [facility] Comments:: Patient was up and walking when I entered the room. He is awake, alert, ple asant, no acute distress. He was able to stand for the entire exam/interview. - Exam Quality Assessment: Supplemental Oxygen, DVT Prophylaxis General: Alert, Oriented, Cooperative, No Acute Distress HEENT: EOMI Lungs: Clear to Auscultation Cardiovascular: Regular Rate, Regular Rhythm, Murmurs, Gallops GI/Abdominal Exam: Normal Bowel Sounds, Non-Tender Peripheral Pulses: 2+: Radial (L), Radial (R), Dorsalis Pedis (L), Dorsalis Pedis (R) Skin: Warm, Dry, Intact Neurological: No New Focal Deficit, Other (Proprioception intact in the bilateral upper and lower extremities, Romberg test and pronator drift test are negative) Psy/Mental Status: Alert, Normal Affect, Normal Mood - Patient Data Lab Results Last 24 hrs: Laboratory Results - last 24 hr 06/04/21 06/04/21 06/04/21 Range/Units 09:28 09:28 09:28 WBC 18.8 H (3.2-10.1) x10-3/uL RBC 4.45 (3.90-5.90) x10(6)uL Hgb 14.3 (12.9-17.7) g/dL Hct 42.2 (38.3-50.1) % MCV 94.7 (80.8-98.7) fL MCH 32.1 (27.0-33.3) pg MCHC 34.0 (28.7-35.3) g/dL RDW 14.0 (12.4-15.0) % Plt Count 193 (117-477) x10(3)uL MPV 6.5 L (6.7-11.0) fL Add Manual Diff Yes Neutrophils % (Manual) 84 H (46-82) % Band Neutrophils % 2 (0-6) % Lymphocytes % (Manual) 10 L (13-37) % Monocytes % (Manual) 4 (4-12) % Sodium 137 (135-145) mmol/L Potassium 3.5 (3.5-5.3) mmol/L Chloride 98 L (100-110) mmol/L Carbon Dioxide 28 (21-32) mmol/L BUN 23 H (7-18) mg/dL Creatinine 1.1 (0.70-1.30) mg/dL Est Cr Clr Drug Dosing TNP Estimated GFR (MDRD) > 60 (>60) BUN/Creatinine Ratio 20.9 H (9-20) Glucose 109 (80-116) mg/dL Calcium 8.2 L (8.6-10.2) mg/dL Magnesium 1.8 (1.8-2.5) mg/dL Total Bilirubin 1.4 H (0.1-1.3) mg/dL AST 16 (5-25) IU/L ALT 25 (12-36) U/L Alkaline Phosphatase 55 L (56-112) IU/L Troponin I 8.2 (4.0-60.3) pg/mL C-Reactive Protein (0.5-0.9) mg/dL Total Protein 6.5 (6.0-8.0) g/dL Albumin 3.1 (2.9-4.5) g/dL Globulin 3.4 g/dL Albumin/Globulin Ratio 0.9 Urine Color (YELLOW) Urine Appearance (CLEAR) Urine pH (5.0-6.5) Ur Specific [place] (1.010-1.025) Urine Protein (NEGATIVE) mg/dL Urine Glucose (UA) (NORMAL) mg/dL Urine Ketones (NEGATIVE) mg/dL Urine Occult Blood (NEGATIVE) Urine Nitrite (NEGATIVE) Urine Bilirubin (NEGATIVE) Urine Urobilinogen (NEGATIVE) mg/dL Ur Leukocyte Esterase (NEGATIVE) U Hyaline Cast (Auto) (NS) Urine RBC (0-5) Urine WBC (0-5) Ur Squamous Epith Cells (NS,R,O) Urine Bacteria (NS) SARS-CoV-2 RNA (MADELEINE) (NEGATIVE) 06/04/21 06/04/21 06/04/21 Range/Units 09:28 10:16 11:00 WBC (3.2-10.1) x10-3/uL RBC (3.90-5.90) x10(6)uL Hgb (12.9-17.7) g/dL Hct (38.3-50.1) % MCV (80.8-98.7) fL MCH (27.0-33.3) pg MCHC (28.7-35.3) g/dL RDW (12.4-15.0) % Plt Count (117-477) x10(3)uL MPV (6.7-11.0) fL Add Manual Diff Neutrophils % (Manual) (46-82) % Band Neutrophils % (0-6) % Lymphocytes % (Manual) (13-37) % Monocytes % (Manual) (4-12) % Sodium (135-145) mmol/L Potassium (3.5-5.3) mmol/L Chloride (100-110) mmol/L Carbon Dioxide (21-32) mmol/L BUN (7-18) mg/dL Creatinine (0.70-1.30) mg/dL Est Cr Clr Drug Dosing Estimated GFR (MDRD) (>60) BUN/Creatinine Ratio (9-20) Glucose (80-116) mg/dL Calcium (8.6-10.2) mg/dL Magnesium (1.8-2.5) mg/dL Total Bilirubin (0.1-1.3) mg/dL AST (5-25) IU/L ALT (12-36) U/L Alkaline Phosphatase (56-112) IU/L Troponin I (4.0-60.3) pg/mL C-Reactive Protein 0.8 (0.5-0.9) mg/dL Total Protein (6.0-8.0) g/dL Albumin (2.9-4.5) g/dL Globulin g/dL Albumin/Globulin Ratio Urine Color Yellow (YELLOW) Urine Appearance Clear (CLEAR) Urine pH 7.0 H (5.0-6.5) Ur Specific [place] 1.015 (1.010-1.025) Urine Protein Negative (NEGATIVE) mg/dL Urine Glucose (UA) Normal (NORMAL) mg/dL Urine Ketones Negative (NEGATIVE) mg/dL Urine Occult Blood Negative (NEGATIVE) Urine Nitrite Negative (NEGATIVE) Urine Bilirubin Small H (NEGATIVE) Urine Urobilinogen Normal (NEGATIVE) mg/dL Ur Leukocyte Esterase Negative (NEGATIVE) U Hyaline Cast (Auto) Few H (NS) Urine RBC Not seen (0-5) Urine WBC 0-5 (0-5) Ur Squamous Epith Cells Few H (NS,R,O) Urine Bacteria Few H (NS) SARS-CoV-2 RNA (MADELEINE) Negative (NEGATIVE) Result Diagrams: 06/04/21 09:28 06/04/21 09:28 Sepsis Event Note - Evaluation Sepsis Screening Result: No Definite Risk - Focused Exam Vital Signs: Vital Signs Temp Pulse Resp BP Pulse Ox 06/05/21 04:00 37.0 C 77 18 121/67 90 L - Problem List & Annotations (1) Hypothyroidism SNOMED Code(s): 21229338 Code(s): E03.9 - HYPOTHYROIDISM, UNSPECIFIED Status: Chronic Current Visit: Yes (2) Diabetes mellitus type 2 in nonobese SNOMED Code(s): 653098304 Code(s): E11.9 - TYPE 2 DIABETES MELLITUS WITHOUT COMPLICATIONS Status: Chronic Current Visit: Yes (3) GERD (gastroesophageal reflux disease) SNOMED Code(s): 267063187 Code(s): K21.9 - GASTRO-ESOPHAGEAL REFLUX DISEASE WITHOUT ESOPHAGITIS Status: Chronic Current Visit: Yes (4) Hiatal hernia SNOMED Code(s): 66343389 Code(s): K44.9 - DIAPHRAGMATIC HERNIA WITHOUT OBSTRUCTION OR GANGRENE Status: Chronic Current Visit: Yes (5) Polymyalgia rheumatica SNOMED Code(s): 66608763 Code(s): M35.3 - POLYMYALGIA RHEUMATICA Status: Acute Current Visit: Yes (6) BPH (benign prostatic hyperplasia) SNOMED Code(s): 864438902 Code(s): N40.0 - BENIGN PROSTATIC HYPERPLASIA WITHOUT LOWER URINRY TRACT SYMP Status: Chronic Current Visit: Yes (7) Peripheral vascular disease SNOMED Code(s): 193479440 Code(s): I73.9 - PERIPHERAL VASCULAR DISEASE, UNSPECIFIED Status: Chronic Current Visit: Yes (8) Cerebrovascular disease SNOMED Code(s): 01099585 Code(s): I67.9 - CEREBROVASCULAR DISEASE, UNSPECIFIED Status: Chronic Current Visit: Yes (9) History of stroke SNOMED Code(s): 031300338 Code(s): Z86.73 - PRSNL HX OF TIA (TIA), AND CEREB INFRC W/O RESID DEFICITS Status: Chronic Current Visit: Yes (10) Palliative care encounter SNOMED Code(s): 541706731, 044413642 Code(s): Z51.5 - ENCOUNTER FOR PALLIATIVE CARE Status: Acute Current Visit: Yes (11) Fall on same level from tripping SNOMED Code(s): 441368173 Code(s): W01.0XXA - FALL SAME LEV FROM SLIP/TRIP W/O STRIKE AGAINST OBJECT, INIT Status: Acute Current Visit: Yes (12) Head contusion SNOMED Code(s): 554790408 Code(s): S00.93XA - CONTUSION OF UNSPECIFIED PART OF HEAD, INITIAL ENCOUNTER Status: Acute Current Visit: Yes Qualifiers: Encounter type: initial encounter Contusion of head detail: scalp Qualified Code(s): S00.03XA - Contusion of scalp, initial encounter (13) Left elbow contusion SNOMED Code(s): 00999330 Code(s): S50.02XA - CONTUSION OF LEFT ELBOW, INITIAL ENCOUNTER Status: Acute Current Visit: Yes Qualifiers: Encounter type: initial encounter Qualified Code(s): S50.02XA - Contusion of left elbow, initial encounter (14) Contusion of left knee SNOMED Code(s): 07142139 Code(s): S80.02XA - CONTUSION OF LEFT KNEE, INITIAL ENCOUNTER Status: Acute Current Visit: Yes (15) Community acquired pneumonia SNOMED Code(s): 908777047 Code(s): J18.9 - PNEUMONIA, UNSPECIFIED ORGANISM Status: Acute Current Visit: Yes - Problem List Review Problem List Initiated/Reviewed/Updated: Yes - My Orders Last 24 Hours: My Active Orders 06/04/21 13:03 Patient Status [ADT] Routine Pulse Oximetry [RC] .PRN Vital Signs [RC] 00,04,08,12,16,20 DVT/VTE Prophylaxis Reflex [OM.PC] Per Unit Routine Resuscitation Status Routine 06/04/21 13:05 Antiembolic Devices [RC] .Routine VTE/DVT Education [RC] DAILY 06/04/21 13:08 Assess Neurological Status [RC] 00,04,08,12,16,20 06/04/21 13:09 Cardiac Monitoring [RC] 06,14,22 06/04/21 15:15 Omeprazole [Omeprazole] 40 mg PO DAILY@1200 06/04/21 Dinner Regular Diet [DIET] 06/04/21 21:00 Doxazosin [Cardura] 4 mg PO BEDTIME Multivitamins w-Iron/Ca/FA/Min [Thera M Plus] 1 tab PO BEDTIME atenoloL [Tenormin] 25 mg PO BEDTIME 06/05/21 04:00 Levothyroxine 175 mcg PO DAILY@0400 - Plan Plan:: 1. Patient admitted to observation. Neurological checks every 4 hours -normal overnight. Neurological check this morning performed by me was within normal limits. 2. Restart home medications for chronic conditions. Hold Plavix tonight due to recent head trauma. Restart Plavix tomorrow, following discharge. 3. Chest x-ray showed possible right lower lobe consolidation and white blood cell count was 18,000. Patient started on ceftriaxone and azithromycin. 3. DVT prophylaxis: SCDs, frequent ambulation 4. GI prophylaxis: Regular diet, continue home PPI 5. Disposition: This note will serve as a discharge summary. Note that neurological checks overnight were within normal limits. Patient feels well this morning and is able to ambulate and pass neurological checks while standing. Patient will receive a second dose of IV ceftriaxone and azithromycin this afternoon and then will be discharged to home with 1 further day of azithromycin, 500 mg and 5 days of cefdinir 300 mg twice daily. Restart Plavix tomorrow. Follow-up with primary care physician before the end of the week.
[2021-06-05] MEDS: OMEPRAZOLE 40 MG PO SCH (12:23)
[2021-06-05] MEDS: PREDNISONE 20 MG PO SCH (12:23)
[2021-06-05 12:30] VITALS: BP 106/58; PULSE 74
--- NOTE | 2021-06-05 12:32 | CR ---
INDICATION: Syncope. CHEST ONE VIEW: AP upright portable view of the chest 06/04/21 was compared with 04/04/09. Minimal infiltrate is noted at the left lung base with extensive infiltrate in the right mid to lower lung field. Findings may be on the basis of pneumonia, possibly even aspiration. The heart did not appear grossly enlarged. The aorta is tortuous with calcification in the arch minimally. Overlying EKG leads are noted. Somewhat flattened diaphragm leaf with mild hyperaeration raises the question of COPD. A mass behind the heart with what appears to be an air-fluid level is compatible with a large fixed hiatal hernia. IMPRESSION: 1. Pneumonia mainly on the right in the mid to lower lung field most severe at the right lung base. 2. Minimal pneumonia suggested at the left lung base but could be fibrotic also as similar markings were present on the previous study of 2008. 3. 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 4. Cannot exclude a mass behind the heart which likely represents a large fixed hiatal hernia with air-fluid level. MTDD
[2021-06-05] MEDS: cefTRIAXone 2 GM Vial IVPUSH SCH (13:48)
[2021-06-05] MEDS ORDERED: Azithromycin 500 MG in Sodium Chloride 0.9% 250 ML IV SCH (14:30)
== END 2021-06-05 15:20 | disposition home or self-care (01) ==
LOC: FB.ED 09:01 → FB.MS 12:06
PROVIDERS: ADMIT Student in an Organized Health Care Education/Training Program; ATTEND Student in an Organized Health Care Education/Training Program
DX: S00.03XA Contusion of scalp, initial encounter (principal); S50.02XA Contusion of left elbow, initial encounter; S80.02XA Contusion of left knee, initial encounter; E03.9 Hypothyroidism, unspecified; E11.9 Type 2 diabetes mellitus without complications; K21.9 Gastro-esophageal reflux disease without esophagitis; K44.9 Diaphragmatic hernia without obstruction or gangrene; M35.3 Polymyalgia rheumatica; N40.0 Benign prostatic hyperplasia without lower urinary tract symptoms; I73.9 Peripheral vascular disease, unspecified; I67.9 Cerebrovascular disease, unspecified; Z51.5 Encounter for palliative care; Z86.73 Personal history of transient ischemic attack (TIA), and cerebral infarction without residual deficits; Z20.822 Contact with and (suspected) exposure to COVID-19; Z88.8 Allergy status to other drugs, medicaments and biological substances; W01.0XXA Fall on same level from slipping, tripping and stumbling without subsequent striking against object, initial encounter
CPT/HCPCS: 12002; 36415; 70450; 71045; 72125; 80053; 81001; 83735; 84484; 85025; 86140; 93005; 96365; 96366; 96376; 99284-25; A9270-GY; G0378; J0456; J0696; J7050; J7512; U0002

== ENCOUNTER 2022-01-14 10:22 | Emergency (ER) | payer MEDICARE ==
[2022-01-14] MEDS ORDERED: Codeine/guaiFENesin 100mg-10 MG/5 ML Soln 118 ML Bottle PO ONE (10:23)
[2022-01-14 10:37] VITALS: PULSE 88
[2022-01-14] MEDS ORDERED: Lactated Ringers 1,000 ML IV ONE (13:14)
[2022-01-14] MEDS ORDERED: cefTRIAXone 2 GM Vial IVPUSH ONE (13:14)
[2022-01-14] MEDS ORDERED: Acetaminophen/HYDROcodone 325-7.5 MG Tab PO PRN (13:40)
[2022-01-14] MEDS ORDERED: Codeine/guaiFENesin 10-100 MG/5 ML Syrup 5 ML Cup PO ONE (14:10)
[2022-01-14 19:50] VITALS: BP 136/79
== END 2022-01-14 16:45 | disposition home or self-care (01) ==
LOC: FB.ED 10:22
DX: M54.50 Low back pain, unspecified (principal); J18.9 Pneumonia, unspecified organism; I10 Essential (primary) hypertension; K21.9 Gastro-esophageal reflux disease without esophagitis; E11.9 Type 2 diabetes mellitus without complications; E03.9 Hypothyroidism, unspecified; Z86.73 Personal history of transient ischemic attack (TIA), and cerebral infarction without residual deficits; Z88.8 Allergy status to other drugs, medicaments and biological substances; Z79.899 Other long term (current) drug therapy; Z20.822 Contact with and (suspected) exposure to COVID-19
CPT/HCPCS: 36415; 71046; 72100; 80053; 85025; 96374; 99283; A9270; J0696; J7120; U0002